=== PATIENT | female | born 1980 | race Caucasian/White ===

== ENCOUNTER → 2019-12-09 | Day surgery (SDC) | payer MEDICAID ==
[2019-12-06 14:24] VITALS: BMI 22.1
--- NOTE | 2019-12-08 11:46 | P.HPOB ---
History of Present Illness H&P Date: 12/08/19 Chief Complaint: Menorrhagia with irreg. cycle, endometrial thickening, anemia This is a 39 y.o. female 2, para 2, who presents for dilatation and curettage with hysteroscopy due to menorrhagia with irregular cycle, anemia and endometrial thickening. She started a period on 09/24/2019 that was 2 weeks late and it lasted until 10/22/2019. At least 5 days were very heavy. She had to change a pad and tampon every hour. She also complained of intermenstrual spotting and bleeding. She denies cramping. Ultrasound showed uterus retroverted, measuring 9.3 x 3.7 x6.8 cm. with endometrium measuring 2.8 cm. Her right ovary had a cyst measuring 1.2 cm and left ovary had cyst measuring 3.7 cm. Her hemoglobin in the office was 9.5. She has been taking iron. OB Hx: . History of 2 vaginal deliveries. 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 Not currently sexually active. Social Hx: . Works as an RN. Review of Systems Constitutional: Reports weight gain, Denies chills, Denies fever Eyes: denies blurred vision, denies pain Ears, nose, mouth and throat: Denies headache, Denies sore throat Cardiovascular: Reports dyspnea on exertion (when bleeding was heavy), Denies chest pain Respiratory: Denies cough Gastrointestinal: Denies abdominal pain, Denies diarrhea, Denies nausea, Denies vomiting Genitourinary: Reports abnormal vaginal bleeding, Reports dysmenorrhea, Denies pelvic pain, Denies Menstruation: Reports cycle variable, Reports menses 8 or > days, Reports period heavy Musculoskeletal: Reports myalgias (knee) Integumentary: Denies pruritus, Denies rash Neurological: Denies numbness, Denies weakness Psychiatric: Denies anxiety, Denies depression Past Medical History Past Medical History: No Reported History Additional Past Medical History / Comment(s): abnormal vaginal bleeding History of Any Multi-Drug Resistant Organisms: None Reported Additional Past Surgical History / Comment(s): wilfrido ear tubes Past Anesthesia/Blood Transfusion Reactions: No Reported Reaction Additional Past Anesthesia/Blood Transfusion Reaction / Comment(s): has never had general anesthesia Past Psychological History: No Psychological Hx Reported Smoking Status: Former smoker Past Alcohol Use History: Occasional Past Drug Use History: None Reported - Past Family History Mother Family Medical History: No Reported History Father Family Medical History: AFIB, Thyroid Disorder Medications and Allergies Home Medications Medication Instructions Recorded Confirmed Type Ferrous Sulfate [Feosol] 325 mg PO DAILY 12/06/19 12/09/19 History Allergies Allergy/AdvReac Type Severity Reaction Status Date / Time No Known Allergies Allergy Verified 12/09/19 06:38 Exam Osteopathic Statement: *. No significant issues noted on an osteopathic structural exam other than those noted in the History and Physical/Consult. HEENT: within normal limits Heart: regular rate and rhythm Lungs: clear to auscultation bilaterally Abdomen: soft, non-tender Pelvic exam: uterus retroverted, non-tender, 1st degree uterine prolapse, no adnexal masses or tenderness Extremities: neg. Phil's Assessment and Plan (1) Menorrhagia with irregular cycle Current Visit: No Status: Acute Code(s): N92.1 - EXCESSIVE AND FREQUENT MENSTRUATION WITH IRREGULAR CYCLE SNOMED Code(s): 145224711 (2) Endometrial thickening on ultrasound Current Visit: No Status: Acute Code(s): R93.89 - ABNORMAL FINDINGS ON DX IMAGING OF OTH BODY STRUCTURES SNOMED Code(s): 451213127 (3) Iron deficiency anemia Current Visit: No Status: Acute Code(s): D50.9 - IRON DEFICIENCY ANEMIA, UNSPECIFIED SNOMED Code(s): 46453826 Plan: Proceed with dilatation and curettage with hysteroscopy. I have discussed the risks, benefits, and alternative therapies for the above- mentioned procedure and for both sedation/anesthesia as well as necessary blood products administration, if indicated, as they pertain to this patient. The patient has indicated her understanding and acceptance of the risks and procedures discussed.
[~2019-12-09] MED LIST: DEXAMETHASONE SOD PHOSPHATE 10 MG/ML 1 ML VIAL IV ONE; HYDROmorphone 0.5 MG/0.5 ML SYRINGE IVP PRN; LACTATED RINGERS 1,000 ML IV ONE; LACTATED RINGERS 1,000 ML IV SCH; LIDOCAINE 1% (10MG/ML) FOR IV START INTRADERMA ONE; LIDOCAINE 1% INJ 10MG/ML (20 ML MDV) ONE; MIDAZOLAM 2 MG/2 ML VIAL ONE; NALOXONE 0.4 MG/ML 1 ML VIAL ONE; ONDANSETRON 4 MG/2 ML VIAL IVP ONE; PROPOFOL 10 MG/ML 20 ML VIAL IV ONE; Pre Op ABX Message 1 EACH MISC MISCELLANE ONE; SUCCINYLCHOLINE CHLORIDE 100 MG/5 ML SYR IV ONE; fentaNYL (PF) 50 MCG/ML 2 ML AMP IV PRN; fentaNYL (PF) 50 MCG/ML 2 ML AMP ONE
--- NOTE | 2019-12-09 07:55 | P.OP ---
Date of Procedure: 12/09/19 Preoperative Diagnosis: Menorrhagia with irregular cycle Endometrial thickening Anemia Postoperative Diagnosis: Same Procedure(s) Performed: Dilation and curettage with hysteroscopy Anesthesia: BRENDAN Surgeon: Kassandra Lopez Estimated Blood Loss (ml): 5 Pathology: other (Endometrial curettings) Condition: stable Disposition: same day Indications for Procedure: This is a 39 y.o. female 2, para 2, who presents for dilatation and curettage with hysteroscopy due to menorrhagia with irregular cycle, anemia and endometrial thickening. She started a period on 09/24/2019 that was 2 weeks late and it lasted until 10/22/2019. At least 5 days were very heavy. She had to change a pad and tampon every hour. She also complained of intermenstrual spotting and bleeding. She denies cramping. Ultrasound showed uterus retroverted, measuring 9.3 x 3.7 x6.8 cm. with endometrium measuring 2.8 cm. Her right ovary had a cyst measuring 1.2 cm and left ovary had cyst measuring 3.7 cm. Her hemoglobin in the office was 9.5. She has been taking iron. Operative Findings: Uterus is retroverted and sounded to 8-1/2 cm. Grade 2 uterine prolapse and grade 1 cystocele is noted. Upon hysteroscopy, very dyssynchronous endometrial pattern is noted. Neither tubal ostia is completely visualized. No adnexal masses are palpated. A moderate amount of endometrial curettings is obtained. Description of Procedure: The patient is taken to the operating room where she is placed in the dorsal lithotomy position. She is prepped and draped in the normal sterile fashion. Her bladder is drained with a catheter and then removed. Examination is performed under anesthesia. Uterus is sounded be retroverted with no adnexal masses palpated. There is noted to be grade 2 uterine prolapse and grade 1 cystocele. Next the uterus is sounded to 8-1/2 cm. Next the cervix is gently dilated with Malin dilators. Hysteroscopy was performed using normal saline. The above noted findings are made and pictures are taken. Hysteroscope was wit hdrawn. A polyp forceps was introduced and a moderate amount of endometrial curettings were obtained. Slightly necrotic appearing tissue and blood clot was noted. Next a medium-size sharp curet was reduced and sharp curettage was performed until a gritty texture was noted. There was a slightly irregular contour along the anterior border consistent with a possible submucosal fibroid. Minimal further tissue was obtained. Next the specimen was removed from the field and labeled endometrial curettings. The single-tooth tenaculum was removed. No active bleeding was noted. All instruments are removed from the vagina. All sponge counts are correct. The patient is then taken to recovery room in stable condition.
[2019-12-09 08:08] VITALS: TEMP 97.2
[2019-12-09 08:52] VITALS: RESP 14
[2019-12-09 09:29] VITALS: BP 107/64; PULSE 50
== END | disposition home or self-care (01) ==
LOC: OR 06:10
PROVIDERS: ATTEND Obstetrics & Gynecology
DX: N92.1 Excessive and frequent menstruation with irregular cycle (principal); N81.2 Incomplete uterovaginal prolapse; D50.9 Iron deficiency anemia, unspecified; Z96.22 Myringotomy tube(s) status; Z87.891 Personal history of nicotine dependence; Z82.49 Family history of ischemic heart disease and other diseases of the circulatory system; Z83.49 Family history of other endocrine, nutritional and metabolic diseases
CPT/HCPCS: 81025; 88305; 58558; J2250; J1100; J2310; J2405; J2001; J3010; J0330; J2704

== ENCOUNTER 2023-02-27 07:37 | Day surgery (SDC) | payer MEDICAID ==
[2023-02-24 08:37] VITALS: BMI 22.7
--- NOTE | 2023-02-26 13:31 | P.HPOB ---
History of Present Illness H&P Date: 02/26/23 Chief Complaint: EVGENY I This is a 42 y.o. female, 2, para 2, who presents for colposcopy with loop electrocautery excision procedure due to EVGENY I on endocervical curettage. Her pap smear showed LGSIL with +high risk HPV, Types 16 & 18-neg. She underwent colposcopy that showed EVGENY I on ECC and 2 and 10 o'clock biopsies. Since she is showing EVGENY I in the endocervix and no longer desires fertility, the decision is made to proceed with colposcopy with loop electrocautery excision procedure. OB Hx: . History of 2 vaginal deliveries. 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 Partner has vasectomy. Social Hx: . Works as RN. Review of Systems Constitutional: Denies chills, Denies fever Eyes: denies blurred vision, denies pain Ears, nose, mouth and throat: Denies headache, Denies sore throat Cardiovascular: Denies chest pain, Denies shortness of breath Respiratory: Denies cough Gastrointestinal: Denies abdominal pain, Denies diarrhea, Denies nausea, Denies vomiting Genitourinary: Reports dysmenorrhea, Reports menorrhagia Menstruation: Reports cycle variable Musculoskeletal: Reports myalgias Integumentary: Denies pruritus, Denies rash Neurological: Denies numbness, Denies weakness Psychiatric: Denies anxiety, Denies depression Endocrine: Denies fatigue, Denies weight change Past Medical History Past Medical History: No Reported History Additional Past Medical History / Comment(s): abnormal vaginal bleeding, anemia History of Any Multi-Drug Resistant Organisms: None Reported Additional Past Surgical History / Comment(s): wilfrido ear tubes, D&C, hysteroscopy Past Anesthesia/Blood Transfusion Reactions: No Reported Reaction Additional Past Anesthesia/Blood Transfusion Reaction / Comment(s): States had Narcan after one of surgery. Smoking Status: Former smoker Past Alcohol Use History: Occasional Past Drug Use History: None Reported - Past Family History Mother Family Medical History: No Reported History Father Family Medical History: AFIB, Thyroid Disorder Medications and Allergies Home Medications Medication Instructions Recorded Confirmed Type Ferrous Sulfate [Feosol] 325 mg PO DAILY 12/06/19 02/24/23 History Multivitamins, Thera [Multivitamin 1 tab PO DAILY 02/24/23 02/24/23 History (formulary)] Allergies Allergy/AdvReac Type Severity Reaction Status Date / Time No Known Allergies Allergy Verified 02/24/23 08:31 Exam Osteopathic Statement: *. No significant issues noted on an osteopathic structural exam other than those noted in the History and Physical/Consult. HEENT: within normal limits Heart: regular rate and rhythm Lungs: clear to auscultation bilaterally Abdomen: soft, non-tender Pelvic: uterus retroverted, non-tender, no adnexal masses or tenderness Extremities: neg. Phil's Assessment and Plan (1) EVGENY I (cervical intraepithelial neoplasia I) Status: Acute Code(s): N87.0 - MILD CERVICAL DYSPLASIA SNOMED Code(s): 723568042 Plan: Proceed with colposcopy with loop electrocautery excision procedure. I have discussed the risks, benefits, and alternative therapies for the above- mentioned procedure and for both sedation/anesthesia as well as necessary blood products administration, if indicated, as they pertain to this patient. The patient has indicated her understanding and acceptance of the risks and procedures discussed.
[~2023-02-27 07:37] MED LIST changes: -DEXAMETHASONE SOD PHOSPHATE 10 MG/ML 1 ML VIAL IV ONE; -HYDROmorphone 0.5 MG/0.5 ML SYRINGE IVP PRN; -LACTATED RINGERS 1,000 ML IV ONE; -LACTATED RINGERS 1,000 ML IV SCH; -LIDOCAINE 1% (10MG/ML) FOR IV START INTRADERMA ONE; -LIDOCAINE 1% INJ 10MG/ML (20 ML MDV) ONE; -MIDAZOLAM 2 MG/2 ML VIAL ONE; -NALOXONE 0.4 MG/ML 1 ML VIAL ONE; -ONDANSETRON 4 MG/2 ML VIAL IVP ONE; -PROPOFOL 10 MG/ML 20 ML VIAL IV ONE; -SUCCINYLCHOLINE CHLORIDE 100 MG/5 ML SYR IV ONE; -fentaNYL (PF) 50 MCG/ML 2 ML AMP IV PRN; -fentaNYL (PF) 50 MCG/ML 2 ML AMP ONE
[2023-02-27] MEDS ORDERED: ONDANSETRON 4 MG/2 ML VIAL IVP ONE (07:45)
[2023-02-27] MEDS ORDERED: fentaNYL (PF) 50 MCG/ML 2 ML AMP IV PRN (07:45)
[2023-02-27] MEDS ORDERED: DEXAMETHASONE SOD PHOSPHATE 4 MG/ML 1 ML VIAL IV ONE (07:45)
[2023-02-27] MEDS ORDERED: LACTATED RINGERS 1,000 ML IV SCH (07:45)
[2023-02-27] MEDS ORDERED: KETOROLAC 30 MG/ML 1 ML VIAL ONE (09:32)
[2023-02-27] MEDS ORDERED: fentaNYL (PF) 50 MCG/ML 2 ML AMP ONE (09:32)
[2023-02-27] MEDS ORDERED: MIDAZOLAM 2 MG/2 ML VIAL ONE (09:32)
[2023-02-27] MEDS ORDERED: PROPOFOL 10 MG/ML 20 ML VIAL IV ONE (09:32)
[2023-02-27] MEDS ORDERED: LIDOCAINE 2% INJ 20 MG/ML (2 ML VIAL) ONE (09:32)
[2023-02-27] MEDS ORDERED: FERRIC SUBSULFATE (MONSELS) JAR TOPICAL ONE (09:53)
[2023-02-27] MEDS ORDERED: BUPIVACAINE (PF) 0.5% 30 ML VIAL SQ ONE (09:54)
[2023-02-27] MEDS ORDERED: LIDOCAINE 0.5%-EPI 1:200,000 50 ML VIAL SQ ONE (09:54)
[2023-02-27] MEDS ORDERED: ACETIC ACID 15 DROPS/ML DROPS MISCELLANE ONE (09:54)
[2023-02-27] MEDS ORDERED: LACTATED RINGERS 1,000 ML IV ONE (09:55)
--- NOTE | 2023-02-27 10:19 | P.OP ---
Date of Procedure: 02/27/23 Preoperative Diagnosis: EVGENY-1 Postoperative Diagnosis: Cervical dysplasia Procedure(s) Performed: Colposcopy with loop electrocautery excision procedure Anesthesia: JUANYA Surgeon: Kassandra Lopez Estimated Blood Loss (ml): 5 Pathology: other (#1-ectocervix with 12 o'clock position marked with a black suture and 6 o'clock position marked with a white suture, separate piece is 3:00 border, #2-endocervix) Condition: stable Disposition: same day Indications for Procedure: This is a 42 y.o. female, 2, para 2, who presents for colposcopy with loop electrocautery excision procedure due to EVGENY I on endocervical curettage. Her pap smear showed LGSIL with +high risk HPV, Types 16 & 18-neg. She underwent colposcopy that showed EVGENY I on ECC and 2 and 10 o'clock biopsies. Since she is showing EVGENY I in the endocervix and no longer desires fertility, the decision is made to proceed with colposcopy with loop electrocautery excision procedure. Operative Findings: Multiparous-appearing os is noted. Acetowhite and Lugol white areas are noted along the 6:00 border and transition zone is seen entirely. No mosaicism is noted. Description of Procedure: The patient is taken to the operating room where she is placed in the dorsal lithotomy position. She is prepped and draped in the normal sterile fashion. Her bladder is drained with a catheter and then it is removed. A coated bivalve speculum was placed in the patient's vagina. Colposcopy is then performed using a blue light. Cervix is swabbed with 5% acetic acid solution and the above noted findings are made. Next the cervix is swabbed with Lugol's solution and again the above noted findings are made. The cervix was then circumferentially injected with a 50-50 mixture of half percent Marcaine and half percent lidocaine with epinephrine using a spinal needle. Approximately 7 mL are used. Next a large loop was used with 35 W of cutting power to swipe from left to right along the upper border of the cervix. The same procedure is carried out on the lower border of the cervix. There is a small piece that is removed separately on the 3:00 border. These are labeled as described above. Next a small loop is used to swipe from left to right removing the endocervix. Next a ball-tipped cautery is used with an extension to cauterize the bed left behind. Excellent hemostasis is noted and then Monsel solution is applied. All instruments are removed from the vagina. All sponge counts are correct. The patient is then taken to recovery room in stable condition.
[2023-02-27 10:28] VITALS: TEMP 97.2
[2023-02-27 11:59] VITALS: RESP 18
[2023-02-27 12:24] VITALS: BP 117/77; PULSE 54
== END 2023-02-27 12:21 | disposition home or self-care (01) ==
LOC: OR 07:37
PROVIDERS: ATTEND Obstetrics & Gynecology
DX: N87.0 Mild cervical dysplasia (principal); D64.9 Anemia, unspecified; F10.90 Alcohol use, unspecified, uncomplicated; Z87.891 Personal history of nicotine dependence; Z83.49 Family history of other endocrine, nutritional and metabolic diseases; Z82.49 Family history of ischemic heart disease and other diseases of the circulatory system; Z79.899 Other long term (current) drug therapy
CPT/HCPCS: 81025; 88305; 88307; 57461; J2250; J1100; J2405; J3010; J1885; J2704; J2001

== ENCOUNTER 2023-03-09 10:36 | Emergency (ER) | payer MEDICAID ==
[2023-03-09 10:41] VITALS: PULSE 80; RESP 18
--- NOTE | 2023-03-09 12:02 | XR ---
EXAMINATION TYPE: XR chest 2V DATE OF EXAM: 03/09/2023 COMPARISON: None INDICATION: Fever x4 days TECHNIQUE: Frontal and lateral views of the chest are obtained. FINDINGS: The heart size is normal. The pulmonary vasculature is normal. The lungs are clear. IMPRESSION: 1. No acute pulmonary process.
[2023-03-09 12:22] LABS: Appearance,Urine Clear (Clear); Bacteria,Urine Rare /hpf; Bilirubin,Urine Negative (Negative); Blood,Urine Negative (Negative); Color,Urine Yellow; Glucose,Urine (UA) Negative (Negative); Ketones,Urine Negative (Negative); Leukocyte Esterase,Urine Small (Negative); Mucus,Urine Occasional /hpf; Nitrite,Urine Negative (Negative); Protein,Urine Trace (Negative); Specific Gravity,Urine 1.017 (1.001-1.035); Squamous Epithelial Cell,Urine <1 /hpf (0-4); Urobilinogen,Urine <2.0 mg/dL (<2.0); WBC,Urine 4 /hpf (0-5)
--- NOTE | 2023-03-09 14:27 | ED ---
General Adult HPI - General Chief complaint: Fever Stated complaint: fever Time Seen by Provider: 03/09/23 11:10 Source: patient, RN notes reviewed Mode of arrival: ambulatory - History of Present Illness Initial comments: 42-year-old female presents emergency Department with chief complaint of fever 4 days. Patient states that she has had a mild cough and had some body aches on . She states that she had a LEEP procedure done last week and had follow-up with her fruit cutter on Friday who was not concerned about the fever. She states that she has been more tired than usual. She reports some vaginal discharge that she states has been lessening. Patient denies any pelvic pain. Denies nasal congestion, sore throat, ear pain, urinary frequency, dysuria, shortness breath, chest pain. - Related Data Home Medications Medication Instructions Recorded Confirmed Ferrous Sulfate [Feosol] 325 mg PO DAILY 12/06/19 02/27/23 Multivitamins, Thera [Multivitamin 1 tab PO DAILY 02/24/23 02/27/23 (formulary)] Allergies Allergy/AdvReac Type Severity Reaction Status Date / Time No Known Allergies Allergy Verified 03/09/23 10:41 Review of Systems ROS Statement: Those systems with pertinent positive or pertinent negative responses have been documented in the HPI. ROS Other: All systems not noted in ROS Statement are negative. Past Medical History Past Medical History: No Reported History Additional Past Medical History / Comment(s): abnormal vaginal bleeding, anemia History of Any Multi-Drug Resistant Organisms: None Reported Additional Past Surgical History / Comment(s): wilfrido ear tubes, D&C, hysteroscopy. LEET procedure Past Anesthesia/Blood Transfusion Reactions: No Reported Reaction Additional Past Anesthesia/Blood Transfusion Reaction / Comment(s): States had Narcan after one of surgery. Past Psychological History: No Psychological Hx Reported Smoking Status: Former smoker Past Alcohol Use History: Occasional Past Drug Use History: None Reported - Past Family History Mother Family Medical History: No Reported History Father Family Medical History: AFIB, Thyroid Disorder General Exam Limitations: no limitations General appearance: alert, in no apparent distress Head exam: Present: atraumatic, normocephalic, normal inspection Eye exam: Present: normal appearance, PERRL, EOMI. Absent: scleral icterus, conjunctival injection, periorbital swelling ENT exam: Present: normal exam, mucous membranes moist, TM's normal bilaterally, normal external ear exam Neck exam: Present: normal inspection. Absent: tenderness, meningismus, lymphadenopathy Respiratory exam: Present: normal lung sounds bilaterally. Absent: respiratory distress, wheezes, rales, rhonchi, stridor Cardiovascular Exam: Present: regular rate, normal rhythm, normal heart sounds. Absent: systolic murmur, diastolic murmur, rubs, gallop, clicks GI/Abdominal exam: Present: soft, normal bowel sounds. Absent: distended, tenderness, guarding, rebound, rigid External exam: Present: normal external exam Speculum exam: Present: vaginal discharge By manual exam: Present: normal by manual exam Extremities exam: Present: normal inspection, full ROM, normal capillary refill. Absent: tenderness, pedal edema, joint swelling, calf tenderness Back exam: Present: normal inspection Neurological exam: Present: alert, oriented X3 Psychiatric exam: Present: normal affect, normal mood Skin exam: Present: warm, dry, intact, normal color. Absent: rash Course Vital Signs 03/09/23 10:38 Temperature 99.3 F Pulse Rate 80 Respiratory 18 Rate Blood Pressure 114/77 O2 Sat by Pulse 98 Oximetry Medical Decision Making - Medical Decision Making Was pt. sent in by a medical professional or institution (, PA, INFORMATION SYSTEMS SECURITY MANAGER, urgent care, hospital, or [facility]...) When possible be specific @ -No Did you speak to anyone other than the patient for history (EMS, parent, family, police, friend...)? What history was obtained from this source @ -No Did you review nursing and triage notes (agree or disagree)? Why? @ -I reviewed and agree with nursing and triage notes Were old charts reviewed (outside hosp., previous admission, EMS record, old EKG, old radiological studies, urgent care reports/EKG's, [facility] records)? Report findings @ -No old charts were reviewed Differential Diagnosis (chest pain, altered mental status, abdominal pain women, abdominal pain men, vaginal bleeding, weakness, fever, dyspnea, syncope, headache, dizziness, GI bleed, back pain, seizure, CVA, palpatations, mental health, musculoskeletal)? @ -Differential Fever: Pneumonia, viral URI, endocarditis, myocarditis, pericarditis, otitis, sinusitis, peritonsillar Abscess, retropharyngeal Abscess, epiglottitis, peritonitis, appendicitis, Queta cystitis, diverticulitis, hepatitis, colitis, UTI, PID, TOA, pyelonephritis, prostatitis, epididymitis, meningitis, encephalitis, pulmonary embolism, CVA, thyroid storm, pancreatitis, adrenal crisis, cavernous sinus thrombosis, this is not meant to be an all-inclusive list. EKG interpreted by me (3pts min.). @ -none X-rays interpreted by me (1pt min.). @ -Chest x-ray showed no evidence for acute process CT interpreted by me (1pt min.). @ -None done U/S interpreted by me (1pt. min.). @ -None done What testing was considered but not performed or refused? (CT, X-rays, U/S, labs)? Why? @ -None What meds were considered but not given or refused? Why? @ -None Did you discuss the management of the patient with other professionals (professionals i.e. , PA, INFORMATION SYSTEMS SECURITY MANAGER, lab, RT, psych nurse, social problems specialist, office coordinator receptionist, teacher, benefits officer, case maker)? Give summary @ -No Was smoking cessation discussed for >3mins.? @ -No Was critical care preformed (if so, how long)? @ -No Were there social determinants of health that impacted care today? How? (Homelessness, low income, unemployed, alcoholism, drug addiction, transportation, low edu. Level, literacy, decrease access to med. care, fdc, rehab)? @ -No Was there de-escalation of care discussed even if they declined (Discuss DNR or withdrawal of care, Hospice)? DNR status @ -No What co-morbidities impacted this encounter? (DM, HTN, Smoking, COPD, CAD, Cancer, CVA, ARF, Chemo, Hep., AIDS, mental health diagnosis, sleep apnea, morbid obesity)? @ -None Was patient admitted / discharged? Hospital course, mention meds given and route, prescriptions, significant lab abnormalities, going to OR and other pertinent info. @ -[Discharged. Patient presented emergency department chief complaint of fever 4 days. She admits to cough but denies nasal congestion, sore throat, ear pain, urinary frequency, dysuria, abdominal pain, pelvic pain. Pelvic exam was performed with sterile procedure which showed some white vaginal discharge without any pelvic pain or cervical motion tenderness. Covid, influenza, RSV negative, strep negative, chest x-ray showed no acute cardiopulmonary process. Patient was about to be discharged and had a fever again. She has not taken anything today for fever. Patient was given a dose of Tylenol and Motrin. Case discussed with my attending, Dr. Pittman. Patient stable at time of discharge. Undiagnosed new problem with uncertain prognosis? @ -No Drug Therapy requiring intensive monitoring for toxicity (Heparin, Nitro, Insulin, Cardizem)? @ -No Were any procedures done? @ -No Diagnosis/symptom? @ -fever Acute, or Chronic, or Acute on Chronic? @ -acute Uncomplicated (without systemic symptoms) or Complicated (systemic symptoms)? @ -default Side effects of treatment? @ -No Exacerbation, Progression, or Severe Exacerbation? @ -No Poses a threat to life or bodily function? How? (Chest pain, USA, MS, pneumonia, PE, COPD, DKA, ARF, appy, cholecystitis, CVA, Diverticulitis, Homicidal, Suicid al, threat to staff... and all critical care pts) @ -No - Lab Data Lab Results 03/09/23 03/09/23 03/09/23 Range/Units 11:49 11:49 11:49 Urine Color Yellow Urine Appearance Clear (Clear) Urine pH 6.0 (5.0-8.0) Ur Specific [place] 1.017 (1.001-1.035) Urine Protein Trace H (Negative) Urine Glucose (UA) Negative (Negative) Urine Ketones Negative (Negative) Urine Blood Negative (Negative) Urine Nitrite Negative (Negative) Urine Bilirubin Negative (Negative) Urine Urobilinogen <2.0 (<2.0) mg/dL Ur Leukocyte Esterase Small H (Negative) Urine WBC 4 (0-5) /hpf Ur Squamous Epith Cells <1 (0-4) /hpf Urine Bacteria Rare H (None) /hpf Urine Mucus Occasional H (None) /hpf Influenza Type A (PCR) Not Detected (Not Detectd) Influenza Type B (PCR) Not Detected (Not Detectd) RSV (PCR) Not Detected (Not Detectd) SARS-CoV-2 (PCR) Not Detected (Not Detectd) Group A Strep (PCR) NOT DETECTED (Not Detectd) Disposition Clinical Impression: Fever, Cough Disposition: HOME SELF-CARE Condition: Stable Instructions (If sedation given, give patient instructions): Fever in Adults (ED) Additional Instructions: Follow up with your trust officer and primary care provider next week. Please return to the emergency department for new or worsening symptoms. Is patient prescribed a controlled substance at d/c from ED?: No Referrals: Reid Estrada DO [Primary Care Provider] - 1-2 days Time of Disposition: 14:27
[2023-03-09] MEDS ORDERED: ACETAMINOPHEN TAB 325 MG TAB PO STA (14:41)
[2023-03-09] MEDS ORDERED: IBUPROFEN 600 MG TAB PO STA (14:41)
[2023-03-09 16:17] VITALS: BP 114/75; TEMP 98.8
[2023-03-09 16:26] LABS: Basophils % (A) 0 %; Eosinophils % (A) 0 %; HCT 38.6 % (34.0-46.0); HGB 13.2 gm/dL (11.4-16.0); Lymphocytes # (A) 0.9 k/uL (1.0-4.8); Lymphocytes % (A) 11 %; MCH 30.8 pg (25.0-35.0); MCHC 34.3 g/dL (31.0-37.0); MCV 89.9 fL (80.0-100.0); Mean Platelet Volume 7.4; Monocytes # (A) 0.3 k/uL (0-1.0); Monocytes % (A) 4 %; Neutrophils # (A) 6.4 k/uL (1.3-7.7); Neutrophils % (A) 83 %; Platelet Count 226 k/uL (150-450); RBC 4.29 m/uL (3.80-5.40); RDW 12.5 % (11.5-15.5); WBC 7.6 k/uL (3.8-10.6)
[2023-03-09 16:38] LABS: ALT 20 U/L (4-34); AST 29 U/L (14-36); African American GFR (CKD) >90 (>60 ml/min/1.73 sqM); Albumin 3.5 g/dL (3.5-5.0); Alkaline Phosphatase 72 U/L (38-126); Anion Gap 7 mmol/L; Blood Urea Nitrogen 11 mg/dL (7-17); Calcium 8.2 mg/dL (8.4-10.2); Carbon Dioxide 23 mmol/L (22-30); Chloride 104 mmol/L (98-107); Glucose 98 mg/dL (74-99); Non-African American GFR(CKD) >90 (>60 ml/min/1.73 sqM); Potassium 3.9 mmol/L (3.5-5.1); Sodium 134 mmol/L (137-145); Total Bilirubin 0.3 mg/dL (0.2-1.3); Total Protein 6.1 g/dL (6.3-8.2)
[2023-03-09 16:48] LABS: C Reactive Protein 3.7 mg/dL (<1.0)
== END 2023-03-09 17:16 | disposition home or self-care (01) ==
LOC: EC 10:36
DX: R50.9 Fever, unspecified (principal); R05.9 Cough, unspecified; Z87.891 Personal history of nicotine dependence; Z20.822 Contact with and (suspected) exposure to COVID-19
CPT/HCPCS: 36415; 71046; 80053; 81001; 83605; 85025; 86140; 87636; 87651; 99283